=== PATIENT | female | born 1980 | race Caucasian/White ===

== ENCOUNTER 2018-12-21 08:35 | Day surgery (SDC) | payer OTHER ==
[2018-12-20 09:46] VITALS: BMI 27.9
[2018-12-21] MEDS ORDERED: MIDAZOLAM HCL 2 MG/2 ML SINGLE DOSE VIAL ONE (10:04)
[2018-12-21] MEDS ORDERED: PROPOFOL 20 ML ONE ×2 (10:04→10:50)
[2018-12-21] MEDS ORDERED: ceFAZolin SODIUM 1 GM VIAL ONE (10:15)
[2018-12-21] MEDS ORDERED: LIDOCAINE HCL/PF 2% SDV 5ML VIAL ONE (10:15)
[2018-12-21] MEDS ORDERED: SODIUM CHLORIDE 0.9% P/F 10 ML VIAL IJ ONE (10:15)
[2018-12-21] MEDS ORDERED: ceFAZolin SODIUM 1 GM VIAL IVPB ONE (10:18)
[2018-12-21] MEDS ORDERED: BUPIVACAINE HCL/PF (5 MG/ML) 30 ML VIAL IJ ONE ×3 (10:38)
[2018-12-21] MEDS ORDERED: LIDOCAINE HCL 1%, 10 MG/ML (20ML VIAL) NR ONE ×3 (10:38)
[2018-12-21] MEDS ORDERED: KETOROLAC TROMETHAMINE 30 MG/1 ML VIAL ONE (10:49)
[2018-12-21] MEDS ORDERED: PROMETHAZINE HCL 25 MG/1 ML VIAL IVPUSH PRN (11:28)
[2018-12-21] MEDS ORDERED: oxyCODONE HCL 5 MG TABLET PO PRN (11:28)
[2018-12-21] MEDS ORDERED: ONDANSETRON 4 MG/2 ML VIAL IVPUSH PRN (11:28)
[2018-12-21] MEDS ORDERED: LACTATED RINGERS SOLUTION 1,000 ML IV SCH (11:30)
--- NOTE | 2018-12-21 11:57 | OP ---
Operative Note - Note: Operative Date: 12/21/18 Pre-Operative Diagnosis: Ganglion Cyst Left Dorsal Wrist Operation: Excision of Left Wrist Dorsal Ganglion Post-Operative Diagnosis: Same as Pre-op Surgeon: Jorge Contreras Anesthesia: General Specimens Removed: Ganglion Cyst, Joint Capsule Operative Report Dictated: Yes
--- NOTE | 2018-12-21 13:05 | OP ---
DATE OF OPERATION: 12/21/2018 PREOPERATIVE DIAGNOSIS: Left wrist dorsal ganglion cyst. POSTOPERATIVE DIAGNOSIS: Left wrist dorsal ganglion cyst. PROCEDURE PERFORMED: Excision of left wrist dorsal ganglion cyst with a segment of joint capsule. SURGEON: Jorge Contreras MD ANESTHESIA: General. DESCRIPTION OF PROCEDURE: The patient was on the operating table in supine position with left arm on an arm table and a tourniquet fastened to the left upper arm. The area of the left hand and forearm was then prepped and draped in the usual sterile fashion. The hand was elevated for 3 minutes, and then, tourniquet was inflated to 200 mmHg. The cyst was marked, and a transverse incision was made over the diameter of the palpable cyst. This was carried down sharply through subcutaneous tissues using the scalpel. The cyst was identified and dissected circumferentially using Littler scissors and cautery. The stalk of the cyst was identified diving down beneath the extensor tendons and dissected down to the joint where a small window of joint capsule was excised with the stalk. The capsule of the joint was then cauterized and the wound was irrigated with saline solution. The wound was then closed using 5-0 nylon suture in continuous horizontal mattress fashion. Sterile dressings were then applied consisting of Xeroform and Kerlix gauze in a compressive fashion secured with a 3-inch CLARK bandage. The tourniquet was then deflated without difficulty. Total tourniquet time was 39 minutes. The patient was then awoken from anesthesia without difficulty and taken from the operating room to the recovery room in satisfactory condition having tolerated the procedure well. Bebo [id number]
[2018-12-21 13:24] VITALS: BP 98/58; PULSE 49; TEMP 97.9
--- NOTE | 2018-12-22 14:28 | PATH ---
Surgical Pathology Report Patient Name: ELVIS HERNANDEZ [facility]. Rec. #: [id number] /Age/Gender: 1980 (Age: 38) / F Account: [id number] Location: [facility] SURGICAL Taken: 12/21/2018 Received: 12/21/2018 Reported: 12/22/2018 Physicians: Jorge Contreras M.D. Specimen(s) Received GANGLION CYST LEFT HAND Clinical History Ganglion cyst left hand Final Diagnosis SOFT TISSUE, LEFT HAND, EXCISION: GANGLION CYST. Electronically Signed Isaiah Sher M.D. Gross Description Received in formalin labeled "left ganglion cyst," is a 2.5 x 1.3 x 0.8 cm intact cyst. The outer surface is mccall and smooth. The cyst lumen contains mucinous material. Hydrologic Modeler sections are submitted in one cassette. /12/21/2018 saudi/12/21/2018
== END 2018-12-21 13:05 | disposition home or self-care (01) ==
LOC: JASU-SURG 08:35
PROVIDERS: ATTEND Plastic Surgery
PROC: 0LB60ZZ Excision of Left Lower Arm and Wrist Tendon, Open Approach (ICD-10-PCS; principal; 2018-12-21 10:00)
DX: M67.432 Ganglion, left wrist (principal)
CPT/HCPCS: 84703; 88304-TC; 94760